=== PATIENT | male | born 1970 | race Caucasian/White ===

== ENCOUNTER → 2019-10-19 16:54 | Outpatient (CLI) | payer OTHER, SELFPAY ==
--- NOTE | ~2019-10-19 | US_ITS ---
EXAMINATION: US right upper quadrant DATE: 10/19/2019 17:17 INDICATION: Right upper quadrant abdominal pain TECHNIQUE: Multiple grayscale and Doppler ultrasound images of the abdomen were obtained. COMPARISON: None FINDINGS: The pancreatic head and body are normal in appearance. The pancreatic tail is not visualized. Liver has normal contour, with a smooth surface. There is increased parenchymal echogenicity and coarsened echotexture consistent with diffuse hepatic steatosis. No liver lesion identified. No intrahepatic b iliary duct dilation suspected. Portal venous flow was seen in the hepatopetal, normal direction and has normal Doppler waveform. The gallbladder is normal in appearance. There is no cholelithiasis. Th e common bile duct measures 3 mm, which is normal. Sonographic Martínez sign was reported as negative b y the radar mechanic. IMPRESSION: 1. Diffuse hepatic steatosis. Reviewed, dictated and finalized at location A. CRUSHER OPERATOR
== END ==
DX: R10.11 Right upper quadrant pain (principal); K76.0 Fatty (change of) liver, not elsewhere classified
CPT/HCPCS: 76705

== ENCOUNTER → 2019-11-08 14:11 | Outpatient (CLI) | payer OTHER, SELFPAY ==
--- NOTE | ~2019-11-08 | CT_ITS ---
EXAMINATION: CT abdomen w con DATE: 11/08/2019 15:17 INDICATION: Right upper quadrant abdominal pain. TECHNIQUE: Computed tomography (CT) of the abdomen was performed with 100 mL Omnipaque 350 intravenou s contrast. Automated exposure control and iterative reconstruction technique were employed. The dose -length product was 801.20 mGy-cm. COMPARISON: Ultrasound 10/19/2019 FINDINGS: The visualized portions of the lung bases demonstrate mild atelectasis. A calcified right l sacha nodule and calcified right hilar lymph nodes are consistent with old granulomatous disease. No pl eural effusion. The heart size is normal. No pericardial effusion. There is a 4 mm cyst in the liver. Calcifications in the spleen are consistent with old granulomatous disease. The gallbladder, pancrea s, and adrenal glands are normal. There are cysts in the kidneys measuring up to 12 mm on the left. T here is a 3 mm stone in right kidney. There is a 9 mm stone in right renal pelvis. There are 3 mm and 2 mm stones in left kidney. There are no dilated loops of bowel. The appendix is normal. There is an umbilical hernia containing fat. There are no pathologically enlarged lymph nodes. There is no free intraperitoneal fluid. There is mild thoracolumbar spondylosis. IMPRESSION: 1. Umbilical hernia containing fat. 2. Bilateral nonobstructing kidney stones. Reviewed, dictated and finalized at location A. CONTRACTOR
[2019-11-08 14:56] LABS: Blood Urea Nitrogen 10 mg/dL (8-26); Estimated Glomerular Filt Rate > 60
== END ==
DX: K42.9 Umbilical hernia without obstruction or gangrene (principal); N20.0 Calculus of kidney
CPT/HCPCS: 74160; Q9967